=== PATIENT | female | born 1985 | race Caucasian/White ===

== ENCOUNTER 2021-08-20 13:54 | Outpatient (CLI) | payer BC | END 2021-08-20 13:55 | disposition home or self-care (01) | LOC: CSHLAB 13:54 | PROVIDERS: ATTEND Student in an Organized Health Care Education/Training Program | DX: Z20.822 Contact with and (suspected) exposure to COVID-19 (principal) | CPT/HCPCS: U0003; U0005 ==

== ENCOUNTER 2021-08-22 07:06 | Inpatient (IN) | payer BC ==
[2021-08-22 08:05] VITALS: BMI 26.6
[2021-08-22 08:27] LABS: Fetal Membranes Rupture RUPTURE DETECTED (No Rupture)
[2021-08-22] MEDS ORDERED: Promethazine HCl 25 MG/ML VIAL IM PRN ×3 (09:05→13:43)
[2021-08-22] MEDS ORDERED: Famotidine/PF 20 mg/2ml Vial SLOW IVP PRN (09:05)
[2021-08-22] MEDS ORDERED: hydrALAZINE 20 MG/ML VIAL SLOW IVP PRN ×2 (09:05→13:43)
[2021-08-22] MEDS ORDERED: Ondansetron PF 4 MG/2 ML Vial IVP PRN ×3 (09:05→13:43)
[2021-08-22] MEDS ORDERED: Bicitra 30 ML UDCUP PO PRN (09:05)
[2021-08-22] MEDS ORDERED: Azithromycin 500 MG in Sodium Chloride 0.9% 250 ML 250 ML IVPB SCH (09:15)
[2021-08-22] MEDS ORDERED: ceFAZolin 2 GM/Dextrose 50 ML 2 GM in Premix Bag 1 BAG IVPB SCH (09:15)
[2021-08-22] MEDS ORDERED: Lactated Ringer's 1,000 ML IV SCH ×2 (09:15)
[2021-08-22] MEDS ORDERED: Naloxone HCl 0.4 mg/ml Vial IVP PRN ×2 (09:35)
[2021-08-22] MEDS ORDERED: Fentanyl 100 MCG/2 ML VIAL SLOW IVP PRN (09:35)
[2021-08-22] MEDS ORDERED: diphenhydrAMINE 50 MG/ML VIAL IVP PRN (09:35)
[2021-08-22] MEDS ORDERED: Ondansetron HCl/PF 4 MG/2 ML Vial IVP PRN (09:35)
[2021-08-22] MEDS ORDERED: Meperidine HCl/PF 25 MG/ML VIAL SLOW IVP PRN (09:35)
[2021-08-22] MEDS ORDERED: Promethazine HCl 25 MG SUPP PR PRN (09:35)
[2021-08-22] MEDS ORDERED: Naloxone HCl 0.4 mg/ml Vial IV PRN (09:35)
[2021-08-22] MEDS ORDERED: Moisturizing Cream (Eucerin) 113 GM JAR TOP PRN (09:35)
[2021-08-22] MEDS ORDERED: CEFAZOLIN 1 GM VIAL ONE (09:36)
[2021-08-22 09:37] LABS: Hemoglobin 9.6 g/dL (12.0-15.5); Mean Corpuscular HGB CONC 32.4 g/dL (32.0-36.0); Mean Corpuscular Hemoglobin 28.9 pg (27.0-33.0); Mean Corpuscular Volume 89.2 fl (81.6-98.3); Mean Platelet Volume 9.1 fl (7.4-10.4); Platelet Count 257 10x3/uL (150-450); RBC Distribution Width 17.1 % (11.5-14.5); Red Blood Cell (RBC) Count 3.32 10x6/uL (3.90-5.03); White Blood Cell (WBC) Count 8.9 10x3/uL (3.5-10.5)
[2021-08-22] MEDS ORDERED: Communication Order-Pharmacy FS SCH (09:45)
[2021-08-22] MEDS ORDERED: Ketorolac Tromethamine 30 MG/ML VIAL ONE (09:52)
[2021-08-22] MEDS ORDERED: Ondansetron PF 4 MG/2 ML Vial ONE (09:52)
[2021-08-22] MEDS ORDERED: Dexamethasone 4 mg/ml Vial ONE (09:52)
[2021-08-22] MEDS ORDERED: Morphine PF 10 MG/10 ML VIAL ONE (09:52)
[2021-08-22] MEDS ORDERED: Oxytocin 10 UNITS/ML VIAL ONE (09:52)
[2021-08-22] MEDS ORDERED: Phenylephrine 40 MG/NS 250 ML 250 ML ONE (09:52)
[2021-08-22] MEDS ORDERED: Fentanyl 100 MCG/2 ML VIAL ONE (09:53)
[2021-08-22 09:59] LABS: Syphilis Antibody Nonreactive (Nonreactive); Syphilis Antibody Index 0.04 S/CO (<1.00 Non-Reactive)
[2021-08-22 10:00] LABS: Hep B Surf Ag Non-Reactive S/CO (NonReactive)
[2021-08-22 10:01] LABS: HBSAg Index 0.16 S/CO (0-0.99)
[2021-08-22] MEDS ORDERED: Promethazine HCl 25 MG/ML VIAL ONE (10:08)
[2021-08-22] MEDS ORDERED: Methylergonovine 0.2 MG/ML VIAL ONE ×2 (10:41→10:42)
[2021-08-22] MEDS ORDERED: Midazolam HCl 2 mg/2 ml Vial ONE (10:46)
[2021-08-22] MEDS ORDERED: Simethicone Chewable 80 MG TAB PO PRN (13:43)
[2021-08-22] MEDS ORDERED: Acetaminophen 325 MG TAB PO PRN (13:43)
[2021-08-22] MEDS ORDERED: diphenhydrAMINE 25 MG CAP PO PRN (13:43)
[2021-08-22] MEDS ORDERED: Lanolin Ointment 7 GM TUBE TOP PRN (13:43)
[2021-08-22] MEDS ORDERED: Boostrix 0.5 ML (Tdap) VIAL IM ONE (13:43)
[2021-08-22] MEDS ORDERED: Bisacodyl 10 MG SUPP PR PRN (13:43)
[2021-08-22] MEDS ORDERED: NS w/ Oxytocin 30 units 500 ML ONE (16:20)
[2021-08-22] MEDS: Ketorolac Tromethamine 30 MG/ML VIAL IVP SCH ×2 (16:20→22:11)
[2021-08-22] MEDS ORDERED: Zolpidem Tartrate 5 MG TAB PO PRN (21:45)
[2021-08-22] MEDS ORDERED: HYDROcodone/Acetaminophen 5/325 mg Tablet PO PRN (21:45)
[2021-08-22] MEDS: Docusate 100 MG CAP PO SCH (22:12)
[2021-08-22] MEDS: Ferrous Sulfate 325 MG TAB PO SCH (22:12)
[2021-08-23 04:00] LABS: Mean Corpuscular HGB CONC 32.1 g/dL (32.0-36.0); Mean Corpuscular Volume 90.3 fl (81.6-98.3); Mean Platelet Volume 9.9 fl (7.4-10.4); Platelet Count 255 10x3/uL (150-450); RBC Distribution Width 16.6 % (11.5-14.5); Red Blood Cell (RBC) Count 2.07 10x6/uL (3.90-5.03); White Blood Cell (WBC) Count 12.3 10x3/uL (3.5-10.5)
[2021-08-23] MEDS: Ketorolac Tromethamine 30 MG/ML VIAL IVP SCH ×2 (04:44→12:30)
[2021-08-23 06:00] LABS: #Eosinphils 0.1 10x3/uL (0.0-0.5); #Monocytes 0.7 10x3/uL (0.0-1.1); #Neutrophils 8.2 10x3/uL (1.5-8.4); %Basophils 0.1 % (0.0-2.0); %Eosinophils 0.5 % (0.0-6.0); %Lymphocytes 18.2 % (18.0-47.0); %Monocytes 6.4 % (0.0-10.0); Hemoglobin 5.6 g/dL (12.0-15.5); Mean Corpuscular HGB CONC 32.6 g/dL (32.0-36.0); Mean Corpuscular Hemoglobin 29.5 pg (27.0-33.0); Mean Corpuscular Volume 90.5 fl (81.6-98.3); Mean Platelet Volume 9.5 fl (7.4-10.4); Platelet Count 230 10x3/uL (150-450); RBC Distribution Width 16.9 % (11.5-14.5); White Blood Cell (WBC) Count 11.1 10x3/uL (3.5-10.5)
[2021-08-23 10:34] LABS: Hemoglobin 7.4 g/dL (12.0-15.5)
[2021-08-23] MEDS: Docusate 100 MG CAP PO SCH ×2 (12:29→21:01)
[2021-08-23] MEDS: Ferrous Sulfate 325 MG TAB PO SCH ×2 (12:30→20:58)
[2021-08-23] MEDS: Prenatal Vitamin 1 TAB PO SCH (12:32)
[2021-08-23] MEDS: Ibuprofen 800 MG TAB PO SCH (21:02)
[2021-08-23] MEDS: HYDROcodone/Acetaminophen 5/325 mg Tablet PO PRN (21:21)
[2021-08-24 03:59] LABS: Mean Corpuscular HGB CONC 32.7 g/dL (32.0-36.0); Mean Corpuscular Hemoglobin 29.2 pg (27.0-33.0); Mean Corpuscular Volume 89.2 fl (81.6-98.3); Mean Platelet Volume 9.3 fl (7.4-10.4); Platelet Count 292 10x3/uL (150-450); RBC Distribution Width 17.8 % (11.5-14.5); White Blood Cell (WBC) Count 11.6 10x3/uL (3.5-10.5)
[2021-08-24] MEDS: Ibuprofen 800 MG TAB PO SCH ×3 (05:43→21:07)
[2021-08-24] MEDS: Prenatal Vitamin 1 TAB PO SCH (08:42)
[2021-08-24] MEDS: Ferrous Sulfate 325 MG TAB PO SCH ×2 (08:42→21:06)
[2021-08-24] MEDS: Docusate 100 MG CAP PO SCH ×2 (08:42→21:07)
[2021-08-24] MEDS: HYDROcodone/Acetaminophen 5/325 mg Tablet PO PRN ×2 (09:40→14:56)
[2021-08-25] MEDS: Ibuprofen 800 MG TAB PO SCH ×3 (05:11→21:33)
[2021-08-25] MEDS: HYDROcodone/Acetaminophen 5/325 mg Tablet PO PRN ×3 (07:37→15:18)
[2021-08-25] MEDS: Prenatal Vitamin 1 TAB PO SCH (07:39)
[2021-08-25] MEDS: Ferrous Sulfate 325 MG TAB PO SCH ×2 (07:39→21:33)
[2021-08-25] MEDS: Docusate 100 MG CAP PO SCH ×2 (07:39→21:33)
[2021-08-25 08:24] LABS: Hemoglobin 6.4 g/dL (12.0-15.5)
[2021-08-25 15:52] LABS: Hemoglobin 8.4 g/dL (12.0-15.5)
[2021-08-26] MEDS: HYDROcodone/Acetaminophen 5/325 mg Tablet PO PRN ×3 (01:18→13:41)
[2021-08-26] MEDS: Ibuprofen 800 MG TAB PO SCH ×2 (05:19→13:41)
[2021-08-26 07:49] VITALS: BP 142/80; TEMP 98.2
[2021-08-26] MEDS: Docusate 100 MG CAP PO SCH (08:10)
[2021-08-26] MEDS: Ferrous Sulfate 325 MG TAB PO SCH (08:11)
[2021-08-26] MEDS: Prenatal Vitamin 1 TAB PO SCH (09:35)
== END 2021-08-26 15:35 | disposition home or self-care (01) | DRG 787 ==
LOC: CSHLD/OP 07:06 → CSHLD 09:04 → CSHPP 13:40
PROVIDERS: ADMIT Student in an Organized Health Care Education/Training Program; ATTEND Student in an Organized Health Care Education/Training Program
PROC: 10D00Z1 Extraction of Products of Conception, Low, Open Approach (ICD-10-PCS; principal; 2021-08-22)
PROC: 30233N1 Transfusion of Nonautologous Red Blood Cells into Peripheral Vein, Percutaneous Approach (ICD-10-PCS; 2021-08-23)
DX: O42.02 Full-term premature rupture of membranes, onset of labor within 24 hours of rupture (principal); O99.354 Diseases of the nervous system complicating childbirth; D62 Acute posthemorrhagic anemia; Z3A.39 39 weeks gestation of pregnancy; Z37.0 Single live birth; O24.420 Gestational diabetes mellitus in childbirth, diet controlled; K21.9 Gastro-esophageal reflux disease without esophagitis; O99.62 Diseases of the digestive system complicating childbirth; G43.909 Migraine, unspecified, not intractable, without status migrainosus; F41.9 Anxiety disorder, unspecified; F32.A Depression, unspecified; O99.344 Other mental disorders complicating childbirth; Z79.899 Other long term (current) drug therapy; O90.81 Anemia of the puerperium
CPT/HCPCS: 36415; 36430; 51702; 84112; 85014; 85018; 85027; 86780; 86850; 86900; 86901; 87340; J1100; J1885; J2210; J2250; J2274; J2405; J2550; J2590; J3010; P9016